=== PATIENT | female | born 1965 | race African-American/Black ===

== ENCOUNTER 2017-04-21 21:52 | Emergency (ER) | payer MEDICARE, MEDICAID ==
[~2017-04-21] VITALS: Ht 172.7 cm; Wt 75.0 kg
[~2017-04-21 21:52] MED LIST: AMLO10TA4 PO; ASPI-1079 PO; ATOR10TA PO; ATROVASTATIN PO; CLON0.1T14 PO; CLONIDINE; DIPHENHYDRAMINE; DOXEPIN; ENAL1TAB PO; LISI10TA5 PO; LISI1TAB9 PO; LORAZEPAM; LOV30 SQ; METO50TA95 PO; TRAM50TA3 PO; [UNRECOGNIZED DRUG - CODE] PO; [UNRECOGNIZED DRUG - OTHER]
[2017-04-21 21:55] VITALS: BP 148/98
== END 2017-04-22 01:15 | disposition left against medical advice (07) ==
LOC: ER 21:52
DX: R51 Headache (principal); Z53.21 Procedure and treatment not carried out due to patient leaving prior to being seen by health care provider
CPT/HCPCS: 93005